=== PATIENT | male | born 1955 | race Caucasian/White ===

== ENCOUNTER → 2020-07-22 12:24 | Outpatient (CLI) | payer MEDICARE, MEDICAID, SELFPAY ==
--- NOTE | ~2020-07-22 | CT_ITS ---
EXAMINATION: CT thoracic spine wo con, CT lumbar spine wo con EXAM DATE: 07/22/2020 13:27 (accession [id number]), 07/22/2020 13:28 (accession [id number]) INDICATION: Mid back pain. Low back pain. TECHNIQUE: Spiral CT thoracolumbar spine was performed without contrast. Axial, coronal and sagittal images of the thoracic spine were reviewed. Axial, coronal and sagittal images of the lumbar spine we re reviewed. The dose-length product (DLP) for this examination was 972.64 (accession [id number]) , 821.96 (accession [id number]) mGy-cm. The exposure was tailored according to patient size (aut o mA exposure control), and iterative reconstruction (ASIR) was used as additional dose reduction patti hnique. There is no prior study for comparison. FINDINGS: THORACIC SPINE: There is minimal thoracic dextrocurvature. There is mild diffuse thoracic facet arthr opathy. Mild diffuse thoracic disc disease with small Schmorl's nodes at some of the endplates. There are no acute fractures identified. The vertebral bodies are aligned in the AP dimension. The mid tho racic neural foramen appear congenitally narrow. No endplate erosive change. Vertebral body heights a re maintained. LUMBAR SPINE: Minimally dilated infrarenal abdominal aorta at about 3 cm. Moderate scattered abdomina l aortic arterial sclerosis. Evidence of mild sigmoid diverticulosis. There is 3 mm retrolisthesis L5 on S1, moderate disc disease. 2 mm retrolisthesis L4 on L5. Mild to moderate disc disease at L2-3, m ild at the other levels. Vertebral body heights are maintained. Level by level evaluation: T12-L1: There is a mild diffuse disc bulge. Facet arthropathy: None. Neural foraminal stenosis: No stenosis. Central canal stenosis: No stenosis. L1-L2: There is a mild diffuse disc bulge. Facet arthropathy: Mild. Neural foraminal stenosis: Mild bilateral. Central canal stenosis: Mild. L2-L3: There is a mild to moderate diffuse disc bulge. Facet arthropathy: Mild to moderate. Neural foraminal stenosis: Moderate left, mild right. Central canal stenosis: Mild to moderate. L3-L4: There is a mild to moderate diffuse disc bulge. Facet arthropathy: Moderate. Neural foraminal stenosis: Mild to moderate bilateral. Central canal stenosis: Mild to moderate. L4-L5: There is a mild to moderate diffuse disc bulge. Facet arthropathy: Moderate. Neural foraminal stenosis: Mild to moderate bilateral. Central canal stenosis: Mild to moderate. L5-S1: There is a mild to moderate diffuse disc bulge. Facet arthropathy: Severe. Neural foraminal stenosis: Severe bilateral. Central canal stenosis: Mild. IMPRESSION: 1. L5-S1 moderate disc disease, severe neural foraminal stenosis. 2. Mild thoracic spondylosis. Reviewed, dictated and finalized at location B. IMPRESSION: 1. L5-S1 moderate disc disease, severe neural foraminal stenosis. 2. Mild thoracic spondylosis.
--- NOTE | ~2020-07-22 | CT_ITS ---
EXAMINATION: CT abdomen pelvis w con DATE: 07/22/2020 13:28 INDICATION: Lower abdominal pain. TECHNIQUE: Computed tomography (CT) of the abdomen and pelvis was performed with 100 cc Omnipaque 350 intravenous contrast. The dose-length product was 722.28 mGy-cm. Automated exposure control and iter ative reconstruction technique were employed. COMPARISON: CT dated 04/16/2019. FINDINGS: Lung bases are unremarkable. Heart size upper normal. No significant pleural or pericardial effusion. There is atherosclerosis of the aorta with infrarenal abdominal aortic aneurysm measuring 3.3 cm. No lymphadenopathy. Small subcentimeter hypodensities of the liver, likely benign cysts or hemangiomas. The spleen, pancr eas, adrenal glands are unremarkable. There is nonobstructing right renal stone. There is a left jeanna l cyst measuring 11 mm. No hydronephrosis. Nonobstructive bowel gas pattern. Colonic diverticulosis w ithout evidence for diverticulitis. Mild spondylosis at L5-S1. No acute osseous abnormality. IMPRESSION: 1. No acute abdominal abnormality. 2: Infrarenal abdominal aortic aneurysm measuring 3.3 cm. 3: Nonobstructing right nephrolithiasis. Reviewed, dictated and finalized at location A.
[2020-07-22 13:08] LABS: Estimated Glomerular Filt Rate > 60
== END ==
PROVIDERS: PCP Internal Medicine; Visit Provider Nurse Practitioner Adult Health
DX: R10.30 Lower abdominal pain, unspecified (principal); N20.0 Calculus of kidney; M47.894 Other spondylosis, thoracic region; M51.37 Other intervertebral disc degeneration, lumbosacral region
CPT/HCPCS: 72128; 72131; 74177; Q9967

== ENCOUNTER 2020-11-22 13:49 | Outpatient (CLI) | payer MEDICARE, MEDICAID, SELFPAY | END 2020-11-22 13:50 | disposition home or self-care (01) | LOC: ANHBWCAUD 13:51 | PROVIDERS: PCP Internal Medicine; Visit Provider Otolaryngology | DX: H90.3 Sensorineural hearing loss, bilateral (principal) | CPT/HCPCS: 92557; 92567 ==

== ENCOUNTER → 2021-01-31 09:12 | Outpatient (CLI) | payer MEDICARE, MEDICAID, SELFPAY ==
--- NOTE | ~2021-01-31 | US_ITS ---
EXAMINATION: US abdomen complete EXAM DATE: 01/31/2021 09:42 INDICATION: Chronic hep C. TECHNIQUE: Multiple grayscale and Doppler images of the complete abdomen were obtained (by a technolo gist who performed the scan) and subsequently reviewed. Comparison is made to prior examination from 09/16/2017. FINDINGS: The abdominal aorta is normal in caliber. Visualized portion IVC is patent. The pancreatic head a nd body are normal in appearance. The pancreatic tail is not visualized. The liver has normal echogenicity and contour. There are no focal liver lesions identified. There is no evidence of intrahepatic biliary duct dilation. Portal venous flow was seen in the hepatopedal , normal direction and has normal Doppler waveform. Common bile duct measures 4 mm, which is normal. The gallbladder wall is normal in thickness, with ex pected amount of distention. No sonographic evidence of pericholecystic fluid. There is a 4-5 mm ga llbladder polyp. No cholelithiasis. This was not specifically identified on prior study. Technologis t performing exam reports patient did not demonstrate sonographic Alex's sign. Please note that th is sign is less reliable in patients who have received pain medication. Right kidney: There is normal contour and echogenicity. It measures 10.0 x 5.3 x 6.0 centimeters. There are no focal renal lesions identified. There is no hydronephrosis. Left kidney: There is normal contour and echogenicity. It measures 10.1 x 5.1 x 5.1 centimeters. Th ere is a 1 cm cyst. There is no hydronephrosis. The spleen measures 11.5 centimeters and is morphologically normal. IMPRESSION: 1. Small gallbladder polyp, not likely clinically significant finding. 2. Sonographically unremarkable liver.. Reviewed, dictated and finalized at location A.
== END ==
DX: B18.2 Chronic viral hepatitis C (principal); K82.4 Cholesterolosis of gallbladder
CPT/HCPCS: 76700

== ENCOUNTER → 2021-03-21 14:32 | Outpatient (CLI) | payer MEDICARE, MEDICAID, SELFPAY ==
--- NOTE | ~2021-03-21 | MR_ITS ---
EXAMINATION: MR cervical spine wo con EXAM DATE: 03/21/2021 15:26 INDICATION: Cervical radiculopathy, right shoulder pain. TECHNIQUE: Multi-sequential, multiplanar MR images of the cervical spine were obtained without contra st. Axial T2, axial T2 MERGE sequence. Sagittal T1, T2, T2 fat saturation images also obtained. Cor relation is made to cervical x-ray 02/10/19. FINDINGS: Moderate disc disease at C3-4 and C6-7, mild to moderate at the levels between. There is 2 mm retrolisthesis C3 on C4 and C6 on C7. The vertebral bodies are otherwise aligned. The spinal cord signal intensity and intrinsic morphology is normal. Cervicomedullary junction is normal in appearan ce. There are no suspicious marrow signal abnormalities. Paraspinal soft tissue is unremarkable. Level by level evaluation: C2-C3: Disc does not extend beyond the endplate margin. Uncovertebral joint arthropathy: Mild right. Facet joint arthropathy: Mild bilateral. Neural foraminal stenosis: No stenosis. Central canal stenosis: No stenosis. C3-C4: There is a mild diffuse disc bulge. Uncovertebral joint arthropathy: Moderate to severe left, moderate right. Facet joint arthropathy: Mild to moderate bilateral. Neural foraminal stenosis: Moderate to severe left, moderate right. Central canal stenosis: Mild. C4-C5: There is a mild diffuse disc bulge. Uncovertebral joint arthropathy: Moderate to severe left, moderate right. Facet joint arthropathy: Mild to moderate bilateral. Neural foraminal stenosis: Severe left, moderate to severe right. Central canal stenosis: Mild. C5-C6: Disc does not extend beyond the endplate margin. Uncovertebral joint arthropathy: Mild to moderate left, mild right. Facet joint arthropathy: Mild to moderate bilateral. Neural foraminal stenosis: Mild to moderate left, no right. Central canal stenosis: No stenosis. C6-C7: There is a mild diffuse disc bulge. Uncovertebral joint arthropathy: Severe right, moderate left. Facet joint arthropathy: Moderate bilateral. Neural foraminal stenosis: Severe right, moderate to severe left. Central canal stenosis: Mild. C7-T1: Disc does not extend beyond the endplate margin. Uncovertebral joint arthropathy: None. Facet joint arthropathy: Mild left. Neural foraminal stenosis: No stenosis. Central canal stenosis: No stenosis. IMPRESSION: Significant multilevel neural foraminal stenosis. Reviewed, dictated and finalized at location A.
--- NOTE | ~2021-03-21 | XR_ITS ---
EXAMINATION: XR knee RT min 4V DATE: 03/21/2021 15:56 INDICATION: Right knee pain and instability TECHNIQUE: Four views of the right knee were obtained. COMPARISON: None. FINDINGS: Alignment is normal. No fracture or osteochondral lesion. There is mild to moderate joint s pace narrowing in the medial and patellofemoral compartments. No joint effusion/synovitis. Soft tiss ues are unremarkable. IMPRESSION: 1. Mild to moderate osteoarthritis. Reviewed, dictated and finalized at location A.
--- NOTE | ~2021-03-21 | MR_ITS ---
EXAMINATION: MR lumbar spine wo [facility] EXAM DATE: 03/21/2021 15:38 INDICATION: Low back pain, left leg pain. History of fall 2 years ago. TECHNIQUE: Multi-sequential, multiplanar MR images of the lumbar spine were obtained without contrast . Sagittal T1, T2, T2 fat saturation images. Axial T2 weighted images. Correlation is made to [facility] spine 07/22/20. FINDINGS: Mildly dilated infrarenal abdominal aorta at about 3.2 cm, not significantly changed. The c onus medullaris terminates at the L1 level and has normal signal intensity and morphology. Moderate d isc disease at L5-S1. There is 3 mm retrolisthesis L5 on S1, moderate disc disease, 2 mm retrolisthes is L2 on L3 and L4 on L5. Mild to moderate disc disease at L2-3, mild at the other levels. Vertebral body heights are maintained. There are no suspicious marrow signal abnormalities. Level by level evaluation: T12-L1: There is a mild diffuse disc bulge. Facet arthropathy: Mild. Neural foraminal stenosis: No stenosis. Central canal stenosis: No stenosis. L1-L2: There is a minimal diffuse disc bulge. Facet arthropathy: Mild. Neural foraminal stenosis: Mild bilateral. Central canal stenosis: Mild. L2-L3: There is a mild to moderate diffuse disc bulge. Facet arthropathy: Mild to moderate. Neural foraminal stenosis: Moderate left, mild right. Central canal stenosis: Mild to moderate. L3-L4: There is a mild diffuse disc bulge. Facet arthropathy: Mild to moderate. Neural foraminal stenosis: Mild bilateral. Central canal stenosis: Mild to moderate. L4-L5: There is a mild diffuse disc bulge. Facet arthropathy: Mild. Neural foraminal stenosis: Mild to moderate bilateral. Central canal stenosis: Mild. L5-S1: There is a mild to moderate diffuse disc bulge. Facet arthropathy: Mild to moderate. Neural foraminal stenosis: Moderate to severe bilateral. Central canal stenosis: Mild. IMPRESSION: 1. L5-S1 moderate disc disease, moderate to severe bilateral neural foraminal stenosis. 2. Otherwise mild to moderate spondylosis other levels. Reviewed, dictated and finalized at location A.
--- NOTE | ~2021-03-21 | XR_ITS ---
EXAMINATION: XR knee LT min 4V DATE: 03/21/2021 15:57 INDICATION: Left knee pain and instability TECHNIQUE: Four views of the left knee were obtained. COMPARISON: None. FINDINGS: Alignment is normal. No fracture or osteochondral lesion. There is mild narrowing of the me dial and patellofemoral compartments. No joint effusion/synovitis. Soft tissues are unremarkable. IMPRESSION: 1. Mild osteoarthritis. Reviewed, dictated and finalized at location A. IMPRESSION: 1. Mild osteoarthritis.
--- NOTE | ~2021-03-21 | XR_ITS ---
EXAMINATION: XR hip BI 2V w AP pelvis DATE: 03/21/2021 15:56 INDICATION: Bilateral hip pain TECHNIQUE: AP view the pelvis and two views of each hip were obtained. COMPARISON: 06/06/2015 FINDINGS: Bone alignment is normal. There is no fracture. There is mild osteoarthritis of the hips. M oderate lower lumbar spondylosis is noted. The soft tissues are unremarkable. IMPRESSION: 1. Mild hip osteoarthritis. Reviewed, dictated and finalized at location A. IMPRESSION: 1. Mild hip osteoarthritis.
== END ==
PROVIDERS: Visit Provider Physical Medicine & Rehabilitation Pain Medicine
DX: M17.0 Bilateral primary osteoarthritis of knee (principal); M16.0 Bilateral primary osteoarthritis of hip; M51.37 Other intervertebral disc degeneration, lumbosacral region; M47.896 Other spondylosis, lumbar region
CPT/HCPCS: 72141; 72148; 73521; 73564

== ENCOUNTER → 2021-12-12 03:40 | Outpatient (CLI) | payer MEDICARE, MEDICAID, SELFPAY ==
[2021-12-12 12:09] LABS: SARS-CoV-2 RNA PCR Negative
== END ==
PROVIDERS: PCP Internal Medicine; Visit Provider Internal Medicine
DX: R68.89 Other general symptoms and signs (principal); Z20.822 Contact with and (suspected) exposure to COVID-19
CPT/HCPCS: C9803; U0003; U0005

== ENCOUNTER → 2022-02-02 13:13 | Outpatient (CLI) | payer MEDICARE, MEDICAID, SELFPAY ==
--- NOTE | ~2022-02-02 | US_ITS ---
EXAMINATION: US abdomen complete EXAM DATE: 02/02/2022 13:52 INDICATION: Hepatitis C . TECHNIQUE: Multiple grayscale and Doppler images of the complete abdomen were obtained (by a technolo gist who performed the scan) and subsequently reviewed. Comparison is made to prior examination from 01/31/2021. FINDINGS: Minimally dilated mid abdominal aortic caliber at 3.3 x 3.1 cm. The abdominal aorta is normal in caliber. Visualized portion IVC is patent. The pancreatic head a nd body are normal in appearance. The pancreatic tail is not visualized. The liver has normal echogenicity and contour. There are no focal liver lesions identified. There is no evidence of intrahepatic biliary duct dilation. Portal venous flow was seen in the hepatopedal , normal direction and has normal Doppler waveform. Common bile duct measures 4 mm, which is normal. The gallbladder wall is normal in thickness, with ex pected amount of distention. No sonographic evidence of pericholecystic fluid. There is no cholelit hiases. Can't identify the 4-5 mm gallbladder polyp suspected on prior study. Technologist performing exam reports patient did not demonstrate sonographic Alex's sign. Please note that this sign is l ess reliable in patients who have received pain medication. Right kidney: There is normal contour and echogenicity. It measures 10.4 x 6.4 x 4.5 centimeters. There are no focal renal lesions identified. There is no hydronephrosis. Left kidney: There is normal contour and echogenicity. It measures 10.6 x 5.0 x 3.6 centimeters. Th ere is 1 cm cyst. There is no hydronephrosis. The spleen measures 13 centimeters and is morphologically normal. IMPRESSION: 1. Minimally aneurysmal mid abdominal aorta up to 3.3 cm. 2. Unremarkable liver. Reviewed, dictated and finalized at location A.
== END ==
DX: B18.2 Chronic viral hepatitis C (principal); I71.4 Abdominal aortic aneurysm, without rupture
CPT/HCPCS: 76700

== ENCOUNTER → 2023-08-24 07:38 | Outpatient (CLI) | payer MEDICARE, MEDICAID, SELFPAY ==
--- NOTE | ~2023-08-24 | US_ITS ---
. EXAMINATION: US aorta DATE: 08/24/2023 08:43 CDT INDICATION: Abdominal aortic aneurysm TECHNIQUE: Grayscale, color Doppler, and pulsed Doppler images of the aorta and common iliac arteries were obtained. COMPARISON: Ultrasound dated 02/02/2022 FINDINGS: The proximal aorta measures 2.3 cm greatest sagittal dimension. The mid aorta measures 3.2 cm greates t sagittal dimension. The distal aorta measures 2.1 cm greatest sagittal dimension. The right common internal iliac artery measures 1.5 cm. The left common iliac artery measures 1.4 cm. IMPRESSION: 1. Infrarenal abdominal aortic aneurysm measuring 3.2 cm. Reviewed, dictated and finalized at location L.
== END ==
DX: I71.40 Abdominal aortic aneurysm, without rupture, unspecified (principal)
CPT/HCPCS: 76775

== ENCOUNTER 2025-08-15 08:07 | Outpatient (CLI) | payer MEDICARE, SELFPAY ==
--- NOTE | ~2025-08-15 | US_ITS ---
Examination: US abdomen complete Clinical History: Chronic hepatitis . Comparison: 02/02/2022 Technique: Complete abdominal sonography Findings: Liver: Normal size. Normal echotexture. No intrahepatic biliary ductal dilatation. Normal hepatopedal flow main portal vein. Common duct: Normal caliber, 5 mm. Gallbladder: No stones. No wall thickening. No pericholecystic fluid. Tiny gallbladder polyp as before. Spleen: Enlarged. Pancreas: Obscured by bowel gas. Kidneys: Unremarkable. 16 mm simple cyst left kidney. Aorta: 3.7 cm midportion. Retrohepatic IVC: Unremarkable. IMPRESSION: 1. No acute findings. Reviewed, dictated and finalized at location R. IMPRESSION: 1. No acute findings.
== END 2025-08-15 08:08 | disposition home or self-care (01) ==
LOC: MICIMG 08:09
PROVIDERS: PCP Family Medicine
DX: B18.2 Chronic viral hepatitis C (principal)
CPT/HCPCS: 76700